=== PATIENT | female | born 1955 | race Native Hawaiian/Other Pacific Islander ===

== ENCOUNTER 2017-07-01 09:51 | Outpatient (CLI) | payer OTHER | END 2017-07-01 19:31 | disposition home or self-care (01) | LOC: RAD 09:51 | DX: M54.5 Low back pain (principal); M25.562 Pain in left knee; M25.561 Pain in right knee; Z12.31 Encounter for screening mammogram for malignant neoplasm of breast ==

== ENCOUNTER 2017-07-01 11:44 | Outpatient (CLI) | payer OTHER | END 2017-07-01 21:11 | disposition home or self-care (01) | LOC: MAMMO 11:44 → RAD 11:44 → MAMMO 21:11 | DX: Z12.31 Encounter for screening mammogram for malignant neoplasm of breast (principal) ==

== ENCOUNTER 2017-07-12 11:07 | Outpatient (CLI) | payer OTHER | END 2017-07-12 19:16 | disposition home or self-care (01) | LOC: MAMMO 11:07 | DX: N64.4 Mastodynia (principal); R92.8 Other abnormal and inconclusive findings on diagnostic imaging of breast ==

== ENCOUNTER 2018-01-04 14:55 | Outpatient (CLI) | payer OTHER ==
[2018-01-04 15:18] LABS: PLATELET COUNT 188 K/uL (152-353)
[2018-01-04 15:48] LABS: POTASSIUM 3.9 mmol/L (3.6-5.2)
== END 2018-01-04 22:33 | disposition home or self-care (01) ==
LOC: LAB 14:55
PROVIDERS: Nurse Practitioner Family
DX: I10 Essential (primary) hypertension (principal); G40.909 Epilepsy, unspecified, not intractable, without status epilepticus; E66.01 Morbid (severe) obesity due to excess calories; R53.82 Chronic fatigue, unspecified; R53.81 Other malaise; Z79.899 Other long term (current) drug therapy; Z51.81 Encounter for therapeutic drug level monitoring
CPT/HCPCS: 80053; 80061; 83036; 84436; 84443; 85027

== ENCOUNTER 2018-03-17 10:06 | Outpatient (CLI) | payer OTHER | END 2018-03-17 19:36 | disposition home or self-care (01) | LOC: RESP 10:06 | DX: R92.8 Other abnormal and inconclusive findings on diagnostic imaging of breast (principal); R06.02 Shortness of breath; N95.8 Other specified menopausal and perimenopausal disorders ==

== ENCOUNTER 2018-04-26 10:37 | Outpatient (CLI) | payer OTHER | END 2018-04-26 20:00 | disposition home or self-care (01) | LOC: RESP 10:37 | DX: R07.89 Other chest pain (principal) | CPT/HCPCS: 93306 ==

== ENCOUNTER 2018-05-12 07:11 | Outpatient (CLI) | payer OTHER | END 2018-05-12 19:11 | disposition home or self-care (01) | LOC: NM 07:11 | DX: R07.9 Chest pain, unspecified (principal) | CPT/HCPCS: A9500; J2785 ==

== ENCOUNTER 2018-06-27 10:22 | Outpatient (CLI) | payer OTHER | END 2018-06-27 19:18 | disposition home or self-care (01) | LOC: CT 10:22 | DX: J44.9 Chronic obstructive pulmonary disease, unspecified (principal) ==

== ENCOUNTER 2018-10-13 12:42 | Outpatient (CLI) | payer OTHER | END 2018-10-13 23:24 | disposition home or self-care (01) | LOC: MAMMO 12:42 | DX: N64.4 Mastodynia (principal) ==

== ENCOUNTER 2019-05-31 10:22 | Outpatient (CLI) | payer OTHER | END 2019-05-31 20:10 | disposition home or self-care (01) | LOC: MAMMO 10:22 | DX: N64.89 Other specified disorders of breast (principal) ==

== ENCOUNTER 2020-07-30 15:49 | Outpatient (CLI) | payer OTHER | END 2020-07-30 22:49 | disposition home or self-care (01) | LOC: LABW 15:49 | PROVIDERS: ATTEND Nurse Practitioner Family | DX: I10 Essential (primary) hypertension (principal); Z87.898 Personal history of other specified conditions; Z12.31 Encounter for screening mammogram for malignant neoplasm of breast; E78.49 Other hyperlipidemia; G47.00 Insomnia, unspecified; M19.90 Unspecified osteoarthritis, unspecified site; R73.03 Prediabetes; J44.9 Chronic obstructive pulmonary disease, unspecified; G40.909 Epilepsy, unspecified, not intractable, without status epilepticus | CPT/HCPCS: 36415; 80185 ==

== ENCOUNTER 2020-08-20 12:42 | Outpatient (CLI) | payer OTHER | END 2020-08-20 19:59 | disposition home or self-care (01) | LOC: MAMMO 12:42 | PROVIDERS: ATTEND Nurse Practitioner Family | DX: Z00.00 Encounter for general adult medical examination without abnormal findings (principal); Z12.31 Encounter for screening mammogram for malignant neoplasm of breast; J44.9 Chronic obstructive pulmonary disease, unspecified; E78.49 Other hyperlipidemia; I10 Essential (primary) hypertension; R73.03 Prediabetes; G40.909 Epilepsy, unspecified, not intractable, without status epilepticus; M25.569 Pain in unspecified knee; M19.90 Unspecified osteoarthritis, unspecified site; R53.83 Other fatigue; Z87.898 Personal history of other specified conditions ==

== ENCOUNTER 2020-10-02 12:57 | Outpatient (CLI) | payer OTHER | END 2020-10-02 23:59 | disposition home or self-care (01) | LOC: MAMMO 12:57 | PROVIDERS: ATTEND Nurse Practitioner Family | DX: Z87.898 Personal history of other specified conditions (principal); R92.8 Other abnormal and inconclusive findings on diagnostic imaging of breast ==

== ENCOUNTER 2020-12-09 08:43 | Outpatient (CLI) | payer OTHER | END 2020-12-09 21:33 | disposition home or self-care (01) | LOC: RESP 08:43 | PROVIDERS: ATTEND Internal Medicine Sleep Medicine | DX: J44.9 Chronic obstructive pulmonary disease, unspecified (principal); Z87.891 Personal history of nicotine dependence | CPT/HCPCS: G0297-TC ==

== ENCOUNTER 2021-01-30 13:14 | Outpatient (CLI) | payer OTHER | END 2021-01-30 22:29 | disposition home or self-care (01) | LOC: RESP 13:14 | PROVIDERS: ATTEND Specialist | DX: R56.1 Post traumatic seizures (principal) ==

== ENCOUNTER 2021-02-04 12:56 | Outpatient (CLI) | payer OTHER | END 2021-02-04 22:07 | disposition home or self-care (01) | LOC: RESP 12:56 | PROVIDERS: ATTEND Specialist | DX: G56.02 Carpal tunnel syndrome, left upper limb (principal); G56.22 Lesion of ulnar nerve, left upper limb | CPT/HCPCS: 95885; 95909 ==

== ENCOUNTER 2021-08-06 13:49 | Outpatient (CLI) | payer OTHER | END 2021-08-06 20:26 | disposition home or self-care (01) | LOC: RAD 13:49 | PROVIDERS: ATTEND Nurse Practitioner Family | DX: Z13.820 Encounter for screening for osteoporosis (principal); N95.8 Other specified menopausal and perimenopausal disorders ==

== ENCOUNTER 2021-10-07 15:40 | Outpatient (CLI) | payer OTHER | END 2021-10-07 19:05 | disposition home or self-care (01) | LOC: RAD 15:40 | PROVIDERS: ATTEND Nurse Practitioner Family | DX: E11.9 Type 2 diabetes mellitus without complications (principal); E78.49 Other hyperlipidemia; R31.9 Hematuria, unspecified; R80.8 Other proteinuria; I10 Essential (primary) hypertension; G47.00 Insomnia, unspecified; J44.9 Chronic obstructive pulmonary disease, unspecified; R56.9 Unspecified convulsions; E66.9 Obesity, unspecified; M25.561 Pain in right knee | CPT/HCPCS: 93005 ==

== ENCOUNTER 2021-11-06 09:31 | Outpatient (CLI) | payer OTHER ==
[2021-11-06 09:56] LABS: PLATELET COUNT 210 K/uL (152-353)
[2021-11-06 10:13] LABS: POTASSIUM 3.8 mmol/L (3.6-5.2)
== END 2021-11-06 19:52 | disposition home or self-care (01) ==
LOC: LABW 09:31
PROVIDERS: ATTEND Nurse Practitioner Family
DX: L40.0 Psoriasis vulgaris (principal); Z79.899 Other long term (current) drug therapy
CPT/HCPCS: 36415; 80053; 85027

== ENCOUNTER 2021-11-26 12:20 | Outpatient (CLI) | payer OTHER | END 2021-11-26 19:03 | disposition home or self-care (01) | LOC: CT 12:20 | PROVIDERS: ATTEND Nurse Practitioner Family | DX: Z87.891 Personal history of nicotine dependence (principal) ==

== ENCOUNTER 2022-07-27 13:37 | Outpatient (CLI) | payer OTHER | END 2022-07-27 20:02 | disposition home or self-care (01) | LOC: MAMMO 13:37 | PROVIDERS: ATTEND Nurse Practitioner Family | DX: Z09 Encounter for follow-up examination after completed treatment for conditions other than malignant neoplasm (principal); Z87.898 Personal history of other specified conditions; N64.59 Other signs and symptoms in breast | CPT/HCPCS: G0279 ==

== ENCOUNTER 2022-11-26 12:17 | Outpatient (CLI) | payer OTHER | END 2022-11-26 19:36 | disposition home or self-care (01) | LOC: US 12:17 | PROVIDERS: ATTEND Nurse Practitioner Family | DX: M79.622 Pain in left upper arm (principal) ==

== ENCOUNTER 2022-12-15 12:15 | Outpatient (CLI) | payer OTHER | END 2022-12-15 22:21 | disposition home or self-care (01) | LOC: CT 12:15 | PROVIDERS: ATTEND Nurse Practitioner Family | DX: Z09 Encounter for follow-up examination after completed treatment for conditions other than malignant neoplasm (principal); Z87.891 Personal history of nicotine dependence ==

== ENCOUNTER 2023-06-24 12:52 | Outpatient (CLI) | payer OTHER | END 2023-06-24 20:00 | disposition home or self-care (01) | LOC: US 12:52 | PROVIDERS: ATTEND Nurse Practitioner Family | DX: E78.49 Other hyperlipidemia (principal) ==